=== PATIENT | male | born 1940 | race Caucasian/White ===

== ENCOUNTER → 2016-11-25 | Outpatient (CLI) | payer BC ==
--- NOTE | 2016-11-25 10:28 | RADRPT ---
PROCEDURE: XR right knee. CLINICAL INDICATION: Knee pain TECHNIQUE: AP weightbearing, PA weightbearing, lateral weightbearing and sunrise views are availab le for review. COMPARISON: None available FINDINGS: There is mild osteoarthrosis involving the medial tibial femoral compartment (minimal joint space na rrowing) and the patellofemoral compartment (minimal osteophytosis). There is otherwise normal mineralization, architecture and alignment. No fractures are identified. No osseous lesions are identified. The soft tissues are unremarkable. IMPRESSION: Mild osteoarthrosis involving the medial tibial femoral compartment (minimal joint space narrowing) and the patellofemoral compartment (minimal osteophytosis). RPTAT: [facility] .Florian Wise MD, Date Time Electronically viewed and signed by .Florian Wise MD, on 11/25/2016 10:27 .B/
== END | disposition home or self-care (01) ==
LOC: HKI 09:24
PROVIDERS: ATTEND Orthopaedic Surgery
DX: M25.561 Pain in right knee (principal); S83.231A Complex tear of medial meniscus, current injury, right knee, initial encounter; S83.261A Peripheral tear of lateral meniscus, current injury, right knee, initial encounter
CPT/HCPCS: 20610; G0463; J1030